=== PATIENT | female | born 1965 | race Caucasian/White ===

== ENCOUNTER 2020-03-08 11:49 | Outpatient (RCR) | payer OTHER, SELFPAY | END 2020-03-23 23:59 | disposition home or self-care (01) | LOC: SPT 11:49 | PROVIDERS: PCP Family Medicine; Visit Provider Obstetrics & Gynecology | DX: N81.10 Cystocele, unspecified (principal) | CPT/HCPCS: 97110; 97161; 97530 ==

== ENCOUNTER 2020-03-11 08:21 | Day surgery (SDC) | payer OTHER, SELFPAY ==
[2020-03-10 15:08] VITALS: BMI 30.2
[2020-03-11 08:43] VITALS: BP 137/78; PULSE 90; RESP 18; TEMP 36.1; O2SAT 96
[2020-03-11] MEDS: sodium chloride 0.9% 1,000 ML 30 ML IV (08:47)
[2020-03-11 08:52] LABS: Glucose Point of Care 102 mg/dL (70-110)
--- NOTE | 2020-03-11 08:56 | ANES.PREANE2 ---
Pre-Anesthetic Assessment Pre-Anesthetic Assessment: Height/Weight: Height 1.57 m Weight 74.843 kg Temp Pulse Resp BP Pulse Ox 96.9 F L 90 18 137/78 96 03/11/20 08:43 03/11/20 08:43 03/11/20 08:43 03/11/20 08:43 03/11/20 08:43 Preop Diagnosis: Constipation Proposed Procedure: Operation Date: 03/11/20 09:45 Proposed Procedures p Colonoscopy 30550 K59.00(Not Applicable) - Steven Simon MD Familial anesthetic complications: None Was Beta Odalys taken within 24 hours: N/A Last intake: Intake Last Liquid Date 03/11/20 Last Liquid Time 00:00 Last Solid Date 03/10/20 Last Solid Time 08:00 Social: Social History: No alcohol and No tobacco Exam: Pre-Anes Outpt Exam: alert, oriented x 3, clear to auscultation bilaterally and regular rate & rhythm Airway: Cervical ROM: WNL MP: 3 Dentition: Full Pulmonary: Pulmonary: None reported CV/HEM: CV/HEM: HTN : : None reported Hepatic: Hepatic: None reported GI: GI: None reported Metabolic: Metabolic: DM Musc/skel: Musc/skel: None reported Neuropsych: Neuropsych: None reported Anesthetic Plan: ASA status: 2 Anesthesia: MAC Risk of > 500 ml blood loss (7ml/kg in children): No Meds/Allergies Current Medications: Current Medications Generic Name Dose Route Start Last Admin Trade Name Freq PRN Reason Stop Dose Admin Sodium Chloride 1,000 mls @ 30 ml s/hr 03/11/20 08:45 03/11/20 08:47 Sodium Chloride 0.9% IV 30 mls/hr .Q24H JHONATHAN Administration PFSH Anesthesia PFSH: Medical History (Updated 03/04/20 @ 12:29 by Guzman Allen MD) Constipation Diabetes Hyperlipidemia Hypothyroidism Surgical History History of colonoscopy (~2012) History of total hysterectomy with bilateral salpingo-oophorectomy (BSO) Family History Mother Diabetes Hyperlipidemia Hypertension Grandmother Cancer Father Hypertension Hyperlipidemia Stroke Denies family history of Anesthesia complication Bleeding disorder Social History (Updated 03/04/20 @ 07:58 by Jennifer East LPN) Smoking and tobacco status: never smoked Alcohol intake: never Other details last substance use: Denies drug use Adopted: No Data Anesthesia Other Labs: Laboratory Results - last 48 hr 03/11/20 08:49 POC Glucose 102 Cardiac Studies: No Data to Display
--- NOTE | 2020-03-11 10:51 | W.PM.OPSUD ---
Surgery/Procedure H&P Update DATE OF PROCEDURE: March 11, 2020 DATE H&P PERFORMED: 03/02/20 H&P UPDATE INFORMATION: I have reviewed H&P completed within last 30 days, I have examined patient prior to procedure and No changes to prior documentation PREOP DIAGNOSIS: Constipation PLANNED PROCEDURE: Operation Date: 03/11/20 09:45 Proposed Procedures p Colonoscopy 37244 K59.00(Not Applicable) - Steven Simon MD
[2020-03-11 11:12] VITALS: BP 96/62; PULSE 69; RESP 16; TEMP 36.6; O2SAT 96
[2020-03-11 11:21] VITALS: BP 109/73; PULSE 72; RESP 18; O2SAT 98
== END 2020-03-11 11:28 | disposition home or self-care (01) ==
PROVIDERS: PCP Family Medicine; Visit Provider Surgery
PROC: 0DJD8ZZ Inspection of Lower Intestinal Tract, Via Natural or Artificial Opening Endoscopic (ICD-10-PCS; CPT 45378; principal; 2020-03-11 09:45)
DX: K59.00 Constipation, unspecified (principal); K64.8 Other hemorrhoids; I10 Essential (primary) hypertension; E11.9 Type 2 diabetes mellitus without complications; E78.5 Hyperlipidemia, unspecified; E03.9 Hypothyroidism, unspecified; Z79.4 Long term (current) use of insulin; Z82.49 Family history of ischemic heart disease and other diseases of the circulatory system; Z83.3 Family history of diabetes mellitus
CPT/HCPCS: 12345; 36416; 45378; 82962; J0171; J2704; J7030

== ENCOUNTER 2020-03-24 06:00 | Outpatient (RCR) | payer OTHER, SELFPAY | END 2020-04-23 23:59 | disposition home or self-care (01) | LOC: SPT 06:00 | PROVIDERS: PCP Family Medicine; Visit Provider Obstetrics & Gynecology | DX: N81.10 Cystocele, unspecified (principal) | CPT/HCPCS: 97110; 97530 ==

== ENCOUNTER 2020-04-29 08:31 | Outpatient (CLI) | payer OTHER, SELFPAY ==
--- NOTE | 2020-04-29 08:34 | MM_ITS ---
WS: [id number] BILATERAL DIGITAL SCREENING MAMMOGRAPHY WITH CAD CLINICAL INFORMATION: SCREENING HISTORY: Screening mammogram. No current complaints. COMPARISON: TECHNIQUE: Bilateral CC and MLO views. FINDINGS: The breasts are composed of heterogeneous fibroglandular density tissue, which can limit the detectio n of small underlying mass lesions. Stable 6 mm asymmetric density mid depth right breast. No suspici ous mass, asymmetry, calcifications, or architectural distortion. No evidence of malignancy. MM/[place] [id number] IMPRESSION: BI-RADS: 2-Benign FOLLOW UP: 1 Year Follow-up Recommend return to annual screening mammography.
== END 2020-04-29 08:32 | disposition home or self-care (01) ==
LOC: RADSHAW 08:33
PROVIDERS: PCP Family Medicine; Visit Provider Family Medicine
DX: Z12.31 Encounter for screening mammogram for malignant neoplasm of breast (principal)
CPT/HCPCS: 77067